=== PATIENT | female | born 1960 | race Caucasian/White ===

== ENCOUNTER → 2017-09-26 | Outpatient (CLI) | payer OTHER ==
[~2017-09-26] MED LIST: DIAZ5TAB PO; MECL12.5 PO; METH750T87 PO; NAPR500T4 PO; NO MEDS; OXYC-307 PO; SENN8.6T98 PO
== END | disposition home or self-care (01) ==
LOC: CFH 14:39
PROVIDERS: ATTEND Obstetrics & Gynecology Gynecology
DX: Z12.31 Encounter for screening mammogram for malignant neoplasm of breast (principal); M54.5 Low back pain; M54.6 Pain in thoracic spine; G89.29 Other chronic pain
CPT/HCPCS: 72072; 72110; 77067

== ENCOUNTER → 2020-06-06 | Outpatient (CLI) | payer OTHER ==
[~2020-06-06] MED LIST changes: +NAPR-685 PO; -NAPR500T4 PO
== END | disposition home or self-care (01) ==
LOC: CFH 14:15
PROVIDERS: ATTEND Obstetrics & Gynecology Gynecology
DX: N64.4 Mastodynia (principal); R92.2 Inconclusive mammogram
CPT/HCPCS: 76642; 77066; G0279